=== PATIENT | female | born 1945 | race Caucasian/White ===

== ENCOUNTER → 2016-10-25 | Outpatient (CLI) | payer MEDICARE, OTHER ==
[~2016-10-25] MED LIST: ALEN70TA48 PO; ASPI81TA2 PO; CARV25TA2 PO; FERR-70 PO; FURO20TA4 PO; IBUP-1724 PO; LISI40TA95 PO; METF-186 PO; MULT-933 PO; NITR0.4T SL; PIOG30TA PO; PRAV20TA4 PO; [UNRECOGNIZED DRUG - CODE] PO
--- NOTE | 2016-10-25 08:37 | DI ---
Indication: ITS.REASON: N18.3, N1709, I12.9 PROCEDURE: US RENAL: Encounter: Initial Comparison: None Technique: Grayscale and color Doppler sonographic imaging of both kidneys and bladder was performed. FINDINGS: Both kidneys are present with normal cortical thickness and echogenicity. No evidence for collecting system dilatation, contour deforming mass, nephrolithiasis, or abnormal perinephric fluid collection. The right kidney measures 10.5 cm in length, and the left kidney measures 10 cm in length. Bladder appears sonographically normal without focal mass or debris. IMPRESSION: Normal renal sonogram. .
== END ==
LOC: IMA 06:26
PROVIDERS: ATTEND Internal Medicine Nephrology
DX: N18.3 Chronic kidney disease, stage 3 (moderate) (principal); N17.9 Acute kidney failure, unspecified; I12.9 Hypertensive chronic kidney disease with stage 1 through stage 4 chronic kidney disease, or unspecified chronic kidney disease